=== PATIENT | male | born 1940 | race American Indian/Alaskan Native ===

== ENCOUNTER 2017-01-04 15:57 | Emergency (ER) | payer MEDICARE, OTHER ==
--- NOTE | 2017-01-04 16:18 | Emergency Department Report ---
Chief Complaint: Recheck/Abnormal Lab/Rx Stated Complaint: REFUSED DIALYSIS Time Seen by Provider: 01/04/17 16:15 - HPI History of Present Illness: PT states he was supposed to go to HD today but they were closed. PT's daughter states that the doctor said that if his labs were normal today and he was "safe" he could have HD tomorrow. - ROS Review of Systems: - sob - nausea - Exam Physical Exam: PT looks well, non toxic. HD access noted to [facility] screening note: Focused history and physical exam performed. Due to findings the following was ordered: labs ED Disposition for MSE Condition: Stable
[2017-01-04 16:23] VITALS: BP 140/76
[2017-01-04 17:01] LABS: BUN/Creatinine Ratio 3.72; Calcium 8.2 mg/dL (8.4-10.2); Potassium 4.3 mmol/L (3.6-5.0)
[2017-01-04 17:05] LABS: Basophils % (Auto) 0.7 % (0.0-1.8); Eosinophils % (Auto) 3.7 % (0.0-4.3); Hematocrit 28.4 % (35.5-45.6); Hemoglobin 9.3 gm/dl (11.8-15.2); Mean Corpuscular HGB Conc 33 % (32-34); Mean Corpuscular Hemoglobin 28 pg (28-32); Mean Corpuscular Volume 86 fl (84-94); Platelet Count 187 K/mm3 (140-440); Red Blood Count 3.29 M/mm3 (3.65-5.03); Red Cell Distribution Width 14.4 % (13.2-15.2); White Blood Count 8.3 K/mm3 (4.5-11.0)
--- NOTE | 2017-01-08 10:50 | ED Elopement Review ---
ED Pt Elopement review - Results review Lab results: Laboratory Tests 01/04/17 01/04/17 16:30 16:30 WBC 8.3 RBC 3.29 L Hgb 9.3 L Hct 28.4 L MCV 86 MCH 28 MCHC 33 RDW 14.4 Plt Count 187 Lymph % (Auto) 14.7 [place] % (Auto) 10.0 H Eos % (Auto) 3.7 Baso % (Auto) 0.7 Lymph # 1.2 [place] # 0.8 Eos # 0.3 Baso # 0.1 Seg Neutrophils % 70.9 H Seg Neutrophils # 5.9 Sodium 145 Potassium 4.3 Chloride 100.0 Carbon Dioxide 26 Anion Gap 23 BUN 57 H Creatinine 15.3 H Estimated GFR 4 BUN/Creatinine Ratio 3.72 Glucose 119 H Calcium 8.2 L - Call Back decision Pt Call Back Decision: No action required
== END 2017-01-04 16:31 | disposition left against medical advice (07) ==
LOC: ED 15:57
DX: Z53.21 Procedure and treatment not carried out due to patient leaving prior to being seen by health care provider (principal)
CPT/HCPCS: 36415; 80048; 85025

== ENCOUNTER 2017-01-05 07:30 | Emergency (ER) | payer MEDICARE, OTHER ==
[2017-01-05 07:46] VITALS: BP 132/77
[2017-01-05 08:06] LABS: Hematocrit 27.6 % (35.5-45.6); Mean Corpuscular HGB Conc 33 % (32-34); Mean Corpuscular Hemoglobin 28 pg (28-32); Mean Corpuscular Volume 86 fl (84-94); Platelet Count 179 K/mm3 (140-440); Red Blood Count 3.23 M/mm3 (3.65-5.03); Red Cell Distribution Width 14.2 % (13.2-15.2); White Blood Count 7.4 K/mm3 (4.5-11.0)
[2017-01-05 08:21] LABS: BUN/Creatinine Ratio 3.98; Calcium 8.1 mg/dL (8.4-10.2); Chloride 100.3 mmol/L (98-107); Potassium 4.4 mmol/L (3.6-5.0)
--- NOTE | 2017-01-08 10:51 | ED Elopement Review ---
ED Pt Elopement review - Results review Lab results: Laboratory Tests 01/05/17 01/05/17 07:48 07:48 WBC 7.4 RBC 3.23 L Hgb 9.0 L Hct 27.6 L MCV 86 MCH 28 MCHC 33 RDW 14.2 Plt Count 179 Sodium 142 Potassium 4.4 Chloride 100.3 Carbon Dioxide 22 Anion Gap 24 BUN 61 H Creatinine 15.3 H Estimated GFR 4 BUN/Creatinine Ratio 3.98 Glucose 85 Calcium 8.1 L - Call Back decision Pt Call Back Decision: No action required
== END 2017-01-05 09:42 | disposition left against medical advice (07) ==
LOC: ED 07:30
DX: Z49.01 Encounter for fitting and adjustment of extracorporeal dialysis catheter (principal); Z53.21 Procedure and treatment not carried out due to patient leaving prior to being seen by health care provider
CPT/HCPCS: 36415; 80048; 85027